=== PATIENT | male | born 1985 | race Caucasian/White ===

== ENCOUNTER 2016-06-12 10:24 | Emergency (ER) | payer OTHER ==
[2016-06-12 11:41] VITALS: BP 144/68
--- NOTE | 2016-06-12 12:18 | UC ---
UC General HPI - HPI Summary HPI Summary: complaint of being more fatigued ,tired than usual started to feel more fatigued since he returned from [place] approx 16 of May denies feeling illness- denies fever and chills, mucle achiness,rash, nasal congestion cough,headaches normal appetite and elimination sleeping normally- approx 6-8 hours per night- wakes up refreshed feels like he is moodier, denies depression and anxiety stress level is high d/t financial issues doesn't have a PCP no new medications - History of Current Complaint Chief Complaint: UCGeneralIllness Stated Complaint: FATIGUE TIRED Time Seen by Provider: 06/12/16 12:11 Hx Obtained From: Patient Associated Signs & Symptoms: Negative: Headache - Allergy/Home Medications Allergies/Adverse Reactions: Allergies Allergy/AdvReac Type Severity Reaction Status Date / Time Sulfa Antibiotics Allergy Rash Verified 01/01/15 15:45 PMH/Surg Hx/FS Hx/Imm Hx Previously Healthy: Yes Endocrine History Of: Denies: Diabetes, Thyroid Disease Cardiovascular History Of: Denies: Cardiac Disorders, Hypertension Respiratory History Of: Denies: COPD, Asthma GI/ History Of: Denies: Ulcer - Surgical History Surgical History: None - Family History Known Family History: Positive: Diabetes - father DM2 Negative: Cardiac Disease, Hypertension - Social History Occupation: Employed Full-time Lives: With Family Alcohol Use: None Substance Use Type: Marijuana Smoking Status (MU): Former Smoker Length of Time of Smoking/Using Tobacco: 5 years Have You Smoked in the Last Year: No When Did the Patient Quit Smoking/Using Tobacco: spring 2013 Review of Systems Constitutional: Fatigue Skin: Negative Eyes: Negative ENT: Negative Respiratory: Negative Cardiovascular: Negative Gastrointestinal: Negative Genitourinary: Negative Motor: Negative Neurovascular: Negative Musculoskeletal: Negative Neurological: Negative Psychological: Negative All Other Systems Reviewed And Are Negative: Yes Physical Exam Triage Information Reviewed: Yes Appearance: Well-Appearing, No Pain Distress, Well-Nourished Vital Signs: Initial Vital Signs Temp 98.4 F 06/12/16 11:37 Pulse 54 06/12/16 11:37 Resp 16 06/12/16 11:37 BP 144/68 06/12/16 11:37 Pulse Ox 98 06/12/16 11:37 Vital Signs Reviewed: Yes Eyes: Positive: Conjunctiva Clear ENT: Positive: Pharynx normal, TMs normal. Negative: Nasal congestion Neck: Positive: No Lymphadenopathy Respiratory: Positive: Lungs clear, Normal breath sounds, No respiratory distress, No accessory muscle use Cardiovascular: Positive: RRR, No Murmur, Pulses Normal Abdomen Description: Positive: Nontender, No Organomegaly, Soft. Negative: CVA Tenderness (R), CVA Tenderness (L) Bowel Sounds: Positive: Present Musculoskeletal: Positive: No Edema Neurological: Positive: Alert, Other: - negative Rhomberg Psychological Exam: Normal Skin Exam: Normal Course/Dx - Course Course Of Treatment: exam completed. no indication that any emergent labs need to be completed at this time. discussed at length the need for patient to establish primary care provider to have a full physical and labwork- CBC,CMP, TSH and possible lyme titer, states understanding and he thought that urgent care could be primary care provider. resources given so he can set up primary care - Differential Dx - Multi-Symptom Differential Diagnoses: Other - fatigue Provider Diagnoses: fatigue Discharge - Discharge Plan Condition: Stable Disposition: HOME Patient Education Materials: Fatigue (ED) Referrals: No Primary Care Phys,NOPCP [Primary Care Provider] - [facility] [Outside] Additional Instructions: You need to establish a primary care physician to evaluate you fatigue and get a full physical examination including [place]. Your blood pressure is elevated. Please contact your primary care provider within 1 day -4 weeks for further evaluation. Please review your discharge instructions. If your symptoms do not improve please call your primary care provider or return to urgent care
== END 2016-06-12 12:45 | disposition home or self-care (01) ==
LOC: UCEAST 10:24
DX: R53.83 Other fatigue (principal); Z88.2 Allergy status to sulfonamides; Z87.891 Personal history of nicotine dependence
CPT/HCPCS: 99211; G0463

== ENCOUNTER 2016-11-22 08:55 | Emergency (ER) | payer SELFPAY ==
[2016-11-22 09:06] VITALS: BP 129/74
--- NOTE | 2016-11-22 09:32 | UC ---
Throat Pain/Nasal Saman HPI - HPI Summary HPI Summary: Patient presents to the with CC of sore throat x 1 week with enlarged tonsils. Hx of tonsil stones. Denies hx of strep throat. Endorses sick contacts. He notes to odynophagia, but denies dysphagia. Denies fevers, sweats or chills. Pain is 5/10, constant, worse with swallowing and better with ibuprofen. He is feeling otherwise well and denies other complaints at this time. Denies drooling, voice changes or unability to swallow. Endorses seasonal allergies, denies cough. Not worse with recumbent position and not immunocompromised. Allergy to sulfa. - History of Current Complaint Chief Complaint: UCGeneralIllness Stated Complaint: SORE THROAT Hx Obtained From: Patient Onset/Duration: Sudden Onset Severity: Moderate Pain Intensity: 8 Pain Scale Used: 0-10 Numeric Related History: Seasonal Allergies - Epiglottits Risk Factors Epiglottis Risk Factors: Negative - Allergies/Home Medications Allergies/Adverse Reactions: Allergies Allergy/AdvReac Type Severity Reaction Status Date / Time Sulfa Antibiotics Allergy Rash Verified 11/22/16 09:02 PMH/Surg Hx/FS Hx/Imm Hx Previously Healthy: Yes - Surgical History Surgical History: None - Family History Known Family History: Positive: Diabetes - father DM2 Negative: Cardiac Disease, Hypertension - Social History Occupation: Employed Full-time Lives: With Family Alcohol Use: None Substance Use Type: Marijuana Smoking Status (MU): Former Smoker Length of Time of Smoking/Using Tobacco: 5 years Have You Smoked in the Last Year: No When Did the Patient Quit Smoking/Using Tobacco: spring 2013 Review of Systems Constitutional: Negative Skin: Negative ENT: Sore Throat Respiratory: Negative Cardiovascular: Negative Motor: Negative Neurovascular: Negative Neurological: Negative Is Patient Immunocompromised?: No All Other Systems Reviewed And Are Negative: Yes Physical Exam Triage Information Reviewed: Yes Appearance: Well-Appearing, No Pain Distress, Well-Nourished Vital Signs: Initial Vital Signs Temp 98.2 F 11/22/16 09:03 Pulse 98 11/22/16 09:03 Resp 16 11/22/16 09:03 BP 129/74 11/22/16 09:03 Pulse Ox 99 11/22/16 09:03 Vital Signs Reviewed: Yes Eye Exam: Normal Eyes: Positive: Conjunctiva Clear ENT: Positive: Pharyngeal erythema, Tonsillar swelling - with stones in the Lt tonsil Dental Exam: Normal Neck exam: Normal Neck: Positive: Supple, Tenderness @ - left cervical LN Respiratory Exam: Normal Respiratory: Positive: Lungs clear Cardiovascular Exam: Normal Cardiovascular: Positive: RRR Musculoskeletal Exam: Normal Musculoskeletal: Positive: Strength Intact Neurological Exam: Normal Neurological: Positive: Alert Psychological: Positive: Normal Response To Family Skin Exam: Normal Throat Pain/Nasal Course/Dx - Course Course Of Treatment: Patient is evaluated for enlarged left tonsil and sore throat. Uvula is midline, no drooling, no muffled or hot potato voice noted, taking PO well. Stones are noted in the left tonsil with tenderness over the left LN. Cervical anterior enlarged LN. Will placed on Clindamycin and prednisone for tonsillar stones for possible bacterial component creating the stones. He will follow up with ENT if for any worsening symptoms. - Differential Dx/Diagnosis Differential Diagnosis/HQI/PQRI: Peritonsillar Abscess, Pharyngitis, Tonsillitis Provider Diagnoses: Tonsillitis Discharge - Discharge Plan Condition: Improved Disposition: HOME Prescriptions: Clindamycin Cap(NF) [Clindamycin Cap 300 mg Cap(NF)] 300 mg PO Q6H #28 cap predniSONE TAB* [Deltasone TAB*] 50 mg PO DAILY #5 tab MDD 1 Patient Education Materials: Tonsillitis (ED) Referrals: No Primary Care Phys,NOPCP [Primary Care Provider] - Additional Instructions: Rinse with salt water rinses several times per day Take prednisone daily in the morning x 5 days Clindamcyin 4 x daily for days If symptoms become worse, return to the UC
== END 2016-11-22 09:47 | disposition home or self-care (01) ==
LOC: UCEAST 08:55
DX: J03.90 Acute tonsillitis, unspecified (principal); Z87.891 Personal history of nicotine dependence
CPT/HCPCS: 87651; 99212; G0463

== ENCOUNTER 2018-03-29 08:30 | Emergency (ER) | payer BC ==
[2018-03-29 08:42] VITALS: BP 145/86
--- NOTE | 2018-03-29 09:16 | ED ---
Abdominal Pain/Male - HPI Summary HPI Summary: vomited blood twice, chronic history of reflux, no melena - History of Current Complaint Chief Complaint: UCGI Stated Complaint: ABD PAIN Time Seen by Provider: 03/29/18 09:13 Hx Obtained From: Patient Onset/Duration: Still Present Timing: Constant Severity Initially: Moderate Severity Currently: Moderate Pain Intensity: 5 Character: Sharp, Burning Aggravating Factor(s): Nothing - Allergies/Home Medications Allergies/Adverse Reactions: Allergies Allergy/AdvReac Type Severity Reaction Status Date / Time lactose Allergy Diarrhea Verified 03/29/18 08:43 Sulfa (Sulfonamide Allergy Rash Verified 03/29/18 08:43 Antibiotics) Home Medications: Home Medications Fexofenadine/Pseudoephedrine [Alejandrina-D 24 Hour Tablet] 1 each PO DAILY [History Confirmed 03/29/18] Fluticasone NASAL SPRAY 50MCG* [Flonase NASAL SPRAY 50MCG*] 2 spray BOTH NARES DAILY 03/29/18 [History Confirmed 03/29/18] PMH/Surg Hx/FS Hx/Imm Hx Previously Healthy: Yes Endocrine/Hematology History: Denies: Hx Diabetes, Hx Thyroid Disease Cardiovascular History: Denies: Hx Hypertension Respiratory History: Denies: Hx Asthma, Hx Chronic Obstructive Pulmonary Disease (COPD) GI History: Denies: Hx Ulcer - Surgical History Surgery Procedure, Year, and Place: [facility] Infectious Disease History: No Infectious Disease History: Denies: Hx Clostridium Difficile, Hx Hepatitis, Hx Human Immunodeficiency Virus (HIV), Hx of Known/Suspected MRSA, Hx Shingles, Hx Tuberculosis, Hx Known/ Suspected VRE, Hx Known/Suspected VRSA, History Other Infectious Disease, Traveled Outside the in Last 30 Days - Family History Known Family History: Positive: Diabetes - father DM2 Negative: Cardiac Disease, Hypertension - Social History Alcohol Use: Rare Substance Use Type: Reports: None Smoking Status (MU): Former Smoker Length of Time of Smoking/Using Tobacco: 5 years Have You Smoked in the Last Year: No Review of Systems Constitutional: Negative Eyes: Negative ENT: Negative Cardiovascular: Negative Respiratory: Negative Positive: Abdominal Pain, Vomiting Genitourinary: Negative All Other Systems Reviewed And Are Negative: Yes Physical Exam Triage Information Reviewed: Yes Vital Signs On Initial Exam: Initial Vitals Temp Pulse Resp BP Pulse Ox 36.9 C 98 16 145/86 97 03/29/18 08:36 03/29/18 08:36 03/29/18 08:36 03/29/18 08:36 03/29/18 08:36 Vital Signs Reviewed: Yes Appearance: Positive: Well-Appearing Skin: Positive: Warm Head/Face: Positive: Normal Head/Face Inspection Eyes: Positive: Normal ENT: Positive: Normal ENT inspection Neck: Positive: Supple Respiratory/Lung Sounds: Positive: Clear to Auscultation Cardiovascular: Positive: Normal Abdomen Description: Positive: Nontender Bowel Sounds: Positive: Present Diagnostics - Vital Signs Vital Signs Temp Pulse Resp BP Pulse Ox 03/29/18 08:36 36.9 C 98 16 145/86 97 - Laboratory Lab Statement: Any lab studies that have been ordered have been reviewed, and results considered in the medical decision making process. Abdominal Pain Fem Course/Dx - Diagnoses Provider Diagnoses: Gastritis and duodenitis Discharge - Sign-Out/Discharge Documenting (check all that apply): Patient Departure All imaging exams completed and their final reports reviewed: No Studies - Discharge Plan Condition: Fair Disposition: HOME Prescriptions: Esomeprazole Magnesium [Nexium] 40 mg PO DAILY #30 gra Patient Education Materials: Gastritis (ED), Duodenitis (ED) Referrals: Judith Conrad MD [Primary Care Provider] - - Billing Disposition and Condition Condition: FAIR Disposition: Home
[2018-03-29 11:15] LABS: ABS Basophils 0 10^3/ul (0-0.2); ABS Eosinophils 0.3 10^3/ul (0-0.6); ABS Lymphocytes 2.6 10^3/ul (1.0-4.8); ABS Monocytes 0.5 10^3/ul (0-0.8); ABS Neutrophils 4.1 10^3/ul (1.5-7.7); ABS Nucleated RBC 0 10^3/ul; Eosinophil % 3.5 %; Hematocrit 46 % (42-52); Hemoglobin 15.4 g/dl (14.0-18.0); Lymphocyte % 34.5 %; Mean Corpuscular HGB Conc 34 g/dl (31-36); Mean Corpuscular Hemoglobin 29 pg (27-31); Mean Corpuscular Volume 87 fL (80-94); Nucleated Red Blood Cells % 0.1; Platelet Count 235 10^3/ul (150-450); Red Blood Count 5.25 10^6/ul (4.00-5.40); Red Cell Distribution Width 13 % (10.5-15); White Blood Count 7.5 10^3/ul (3.5-10.8)
--- NOTE | 2018-03-30 07:03 | UC ---
- Progress Note Progress Note: MARCH 30, 2018 Labs: CBC: within normal limits WBC: 7.5 Hgb: 15.4 No change in treatment. Alan Henao MD Course/Dx - Diagnoses Provider Diagnoses: Gastritis and duodenitis Discharge - Sign-Out/Discharge Documenting (check all that apply): Post-Discharge Follow Up All imaging exams completed and their final reports reviewed: No Studies - Discharge Plan Condition: Fair Disposition: HOME Prescriptions: Esomeprazole Magnesium [Nexium] 40 mg PO DAILY #30 gra Patient Education Materials: Gastritis (ED), Duodenitis (ED) Referrals: Judith Conrad MD [Primary Care Provider] - - Billing Disposition and Condition Condition: FAIR Disposition: Home
== END 2018-03-29 10:04 | disposition home or self-care (01) ==
LOC: UCEAST 08:30
DX: K52.9 Noninfective gastroenteritis and colitis, unspecified (principal); K29.80 Duodenitis without bleeding; Z88.2 Allergy status to sulfonamides; Z87.891 Personal history of nicotine dependence
CPT/HCPCS: 36415; 85025; 99212; G0463

== ENCOUNTER 2018-06-06 15:32 | Emergency (ER) | payer BC ==
[2018-06-06 15:39] VITALS: BP 144/99
--- NOTE | 2018-06-06 15:47 | UC ---
Shoulder Pain HPI - HPI Summary HPI Summary: 32 yo male presents with RIGHT shoulder injury. He is right handed. He tells me that about 2 hours [employer]LY[employer] he was walking his dog and his dog lunged forward pulling the pt's arm forward. Pt fell and landed on his right shoulder and felt a pop. Since that time has had pain in his right shoulder that is worse with lifting above his head. He has not taken anything OTC for the pain. Denies numbness or tingling. - History of Current Complaint Chief Complaint: UCUpperExtremity Stated Complaint: R SHOULDER INJURY Time Seen by Provider: 06/06/18 15:47 Hx Obtained From: Patient Onset/Duration: Sudden Onset Timing: Constant Severity Initially: Severe Severity Currently: Severe Pain Intensity: 10 Pain Scale Used: 0-10 Numeric - Allergies/Home Medications Allergies/Adverse Reactions: Allergies Allergy/AdvReac Type Severity Reaction Status Date / Time lactose Allergy Diarrhea Verified 06/06/18 15:39 Sulfa (Sulfonamide Allergy Rash Verified 06/06/18 15:39 Antibiotics) PMH/Surg Hx/FS Hx/Imm Hx GI/ History: Gastroesophageal Reflux - Surgical History Surgical History: Yes Surgery Procedure, Year, and Place: elbow - Family History Known Family History: Positive: Diabetes - father DM2 Negative: Cardiac Disease, Hypertension - Social History Occupation: Employed Full-time Lives: With Family Alcohol Use: Rare Substance Use Type: None Smoking Status (MU): Former Smoker Length of Time of Smoking/Using Tobacco: 5 years Have You Smoked in the Last Year: No When Did the Patient Quit Smoking/Using Tobacco: spring 2013 Review of Systems All Other Systems Reviewed And Are Negative: Yes Constitutional: Positive: Negative Skin: Positive: Negative Respiratory: Positive: Negative Cardiovascular: Positive: Negative Neurovascular: Positive: Negative Musculoskeletal: Positive: Other: - Right shoulder pain Neurological: Positive: Negative Psychological: Positive: Negative Physical Exam - Summary Physical Exam Summary: GENERAL: NAD. WDWN. No pain distress. SKIN: No rashes, sores, lesions, or open wounds. CHEST: No accessory muscle use. Breathing comfortably and in no distress. CV: Pulses intact radial and ulnar. Cap refill <2seconds MSK: RIGHT SHOULDER: TTP about deltoid and biceps origin. Pain with flexion. No edema or obvious bony deformities. POSITIVE empty can and apley's. Negative zavala-cherelle, neer, myrick, and yerjoseph tests. NEURO: Alert. Sensations intact C4-T1 right UE. PSYCH: Age appropriate behavior. Triage Information Reviewed: Yes Vital Signs: Initial Vital Signs Temp 98.9 F 06/06/18 15:35 Pulse 84 06/06/18 15:35 Resp 18 06/06/18 15:35 BP 144/99 06/06/18 15:35 Pulse Ox 100 06/06/18 15:35 Vital Signs Reviewed: Yes Shoulder Course/Dx - Course Course Of Treatment: Shoulder XR: IMPRESSION: NO EVIDENCE OF FRACTURE. Suspect strain vs RTC injury. Pt was given toradol IM in the clinic and provided with a sling for comfort. Advised to RICE and take rx tylenol #3 for pain. Schedule with PT for further treatment and f/u with Ortho if symptoms do not improve. - Differential Dx/Diagnosis Provider Diagnosis: Right shoulder pain Discharge - Sign-Out/Discharge Documenting (check all that apply): Patient Departure All imaging exams completed and their final reports reviewed: Yes - Discharge Plan Condition: Stable Disposition: HOME Prescriptions: Acetaminophen with Codeine [Acetaminophen/Codeine Natalia 300-30 mg] 1 tab PO Q8H PRN #12 tab MDD 3 PRN Reason: Pain Patient Education Materials: Rotator Cuff Injury (ED) Referrals: Judith Conrad MD [Primary Care Provider] - Sharad Gomez MD [Medical Doctor] - If Needed Additional Instructions: If you develop a fever, shortness of breath, chest pain, new or worsening symptoms - please call your PCP or go to the ED. Your blood pressure was high at todays visit. Please see your primary provider within 4 weeks for recheck and re-evaluation. 1) Rest and apply ice to your shoulder to reduce pain 2) Use the sling for comfort and practice gentle range of motion exercises 3) Please call Orthopedics at the number below to schedule a follow up appointment for a recheck if your symptoms do not improve 4) Please call Physical therapy to schedule an appointment - Billing Disposition and Condition Condition: STABLE Disposition: Home
[2018-06-06] MEDS ORDERED: Ketorolac INJ* 60 MG/2 ML VIAL IM ONE (16:11)
== END 2018-06-06 16:28 | disposition home or self-care (01) ==
LOC: UCEAST 15:32
DX: M25.511 Pain in right shoulder (principal); Z88.2 Allergy status to sulfonamides; Z87.891 Personal history of nicotine dependence; W19.XXXA Unspecified fall, initial encounter; Y93.01 Activity, walking, marching and hiking; Y92.9 Unspecified place or not applicable
CPT/HCPCS: 99213; G0463; J1885

== ENCOUNTER 2018-06-25 07:16 | Emergency (ER) | payer SELFPAY ==
--- NOTE | 2018-06-25 07:25 | UC ---
Skin Complaint HPI - HPI Summary HPI Summary: Patient is a32 year old gentleman , who present today to the urgent care with history of tick bite. He reports that he noticed a tick on his right inner thigh yesterday and was able to successfully take it out completely. Unsure but likely had a tick bite on 06/23/18. He has developed a slight rash on his upper inner thigh at the site of tick bite. He denies any fever/chills or any other symptoms - History of Current Complaint Time Seen by Provider: 06/25/18 07:22 Stated Complaint: TICK Hx Obtained From: Patient - Allergy/Home Medications Allergies/Adverse Reactions: Allergies Allergy/AdvReac Type Severity Reaction Status Date / Time lactose Allergy Diarrhea Verified 06/06/18 15:39 Sulfa (Sulfonamide Allergy Rash Verified 06/06/18 15:39 Antibiotics) PMH/Surg Hx/FS Hx/Imm Hx - Additional Past Medical History Additional PMH: Seasonal allergies Asthma GERD Previously Healthy: Yes - Surgical History Surgical History: Yes Surgery Procedure, Year, and Place: elbow - Family History Known Family History: Positive: Diabetes - father DM2 Negative: Cardiac Disease, Hypertension - Social History Alcohol Use: Rare Substance Use Type: None Smoking Status (MU): Former Smoker Length of Time of Smoking/Using Tobacco: 5 years Have You Smoked in the Last Year: No When Did the Patient Quit Smoking/Using Tobacco: spring 2013 Review of Systems All Other Systems Reviewed And Are Negative: Yes Constitutional: Positive: Negative Skin: Positive: Rash - upper inner thigh on the right side, Other - tick bite Eyes: Positive: Negative ENT: Positive: Negative Respiratory: Positive: Negative Cardiovascular: Positive: Negative Gastrointestinal: Positive: Negative Genitourinary: Positive: Negative Motor: Positive: Negative Neurovascular: Positive: Negative Musculoskeletal: Positive: Negative Neurological: Positive: Negative Psychological: Positive: Negative Is Patient Immunocompromised?: No Physical Exam - Summary Physical Exam Summary: Physical Exam: Const: Appears well. No signs of apparent distress present. Alert and oriented x 3. Musculo: Walks with a normal gait. Head/Face: Atraumatic, normocephalic on inspection. Eyes: EOMI and PERRLA in both eyes. Conjunctivae clear. No discharge noted ENT: Hearing normal Respiratory: Respirations are unlabored. Lungs clear to auscultation bilaterally, no wheezing , rhonchi or rales noted . CVS: Regular rate and Rhythm, S1S2 normal , no murmurs identified. Extremities: Peripheral circulation is grossly normal. Pulses 2+ Abdomen : Soft non tender , nondistended , Bowel sounds present . No guarding , rebound tenderness or rigidity noted. Skin:right upper thigh: Tick bite along with erythematous area around the tick bite. no drainage. Neuro: Cranial nerves II to XII intact, motor and sensory intact. DTR Intact bilaterally. Mood is normal. Affect is normal. Triage Information Reviewed: Yes Vital Signs Reviewed: Yes Course/Dx - Course Course Of Treatment: During the visit today, we discussed the findings and further plan . he was given one dose of doxycycline 200 mg. Patient expressed understanding . - Diagnoses Provider Diagnosis: Tick bite of right thigh with local reaction Discharge - Sign-Out/Discharge Documenting (check all that apply): Patient Departure All imaging exams completed and their final reports reviewed: No Studies - Discharge Plan Condition: Stable Disposition: HOME Patient Education Materials: Lyme Disease (ED), Tick Bite (ED) Referrals: Judith Conrad MD [Primary Care Provider] - If Needed Additional Instructions: Please take the medicine after your breakfast today. Follow up with your primary care doctor in 1 week if needed Patients blood pressure slightly high in Urgent care today , plan follow up with PCP for better control Return to Urgent care / ER if symptoms get worse. - Billing Disposition and Condition Condition: STABLE Disposition: Home
[2018-06-25 07:27] VITALS: BP 141/96
[2018-06-25] MEDS ORDERED: DOXYcycline CAP(*) 100 MG PO ONE (07:37)
== END 2018-06-25 07:50 | disposition home or self-care (01) ==
LOC: UCEAST 07:16
DX: S70.361A Insect bite (nonvenomous), right thigh, initial encounter (principal); R21 Rash and other nonspecific skin eruption; W57.XXXA Bitten or stung by nonvenomous insect and other nonvenomous arthropods, initial encounter; Y92.9 Unspecified place or not applicable; J45.909 Unspecified asthma, uncomplicated; K21.9 Gastro-esophageal reflux disease without esophagitis; Z88.2 Allergy status to sulfonamides; Z87.891 Personal history of nicotine dependence
CPT/HCPCS: 99211; A9270-GY; G0463